=== PATIENT | female | born 1955 | race Caucasian/White ===

== ENCOUNTER 2017-09-18 11:11 | Emergency (ER) | payer BC ==
[~2017-09-18] VITALS: Ht 165.1 cm; Wt 62.7 kg
[2017-09-18] MEDS ORDERED: APIX5TAB3 PO ×2 (12:47)
[2017-09-18 13:00] VITALS: BP 138/86
== END 2017-09-18 13:03 | disposition home or self-care (01) ==
LOC: ER 11:12
DX: S80.812A Abrasion, left lower leg, initial encounter (principal); I82.812 Embolism and thrombosis of superficial veins of left lower extremity; Z79.899 Other long term (current) drug therapy; X58.XXXA Exposure to other specified factors, initial encounter; Y93.89 Activity, other specified; Y92.89 Other specified places as the place of occurrence of the external cause; Y99.8 Other external cause status
CPT/HCPCS: 93971; 99284

== ENCOUNTER 2020-08-19 16:51 | Emergency (ER) | payer BC, MEDICAID ==
[~2020-08-19] VITALS: Ht 165.1 cm; Wt 65.9 kg
[~2020-08-19 16:51] MED LIST: APIX5TAB3 PO
--- NOTE | 2020-08-19 18:30 | NUR ---
ocular care technician at bedside.
[2020-08-19] MEDS ORDERED: NAPR-56 PO (18:34)
[2020-08-19] MEDS ORDERED: APIX5TAB3 PO ×2 (18:49)
[2020-08-19] MEDS ORDERED: apixaban 5mg tablet PO STA (18:50)
[2020-08-19 19:21] VITALS: BP 137/92
== END 2020-08-19 19:18 | disposition home or self-care (01) ==
LOC: ER 16:52
DX: I82.401 Acute embolism and thrombosis of unspecified deep veins of right lower extremity (principal); Z79.01 Long term (current) use of anticoagulants
CPT/HCPCS: 93971; 99284

== ENCOUNTER 2022-01-31 16:22 | Emergency (ER) | payer MEDICARE, MEDICAID ==
[~2022-01-31] VITALS: Ht 165.1 cm; Wt 60.0 kg
[2022-01-31 17:53] LABS: ALBUMIN 3.6 G/DL (3.4-5.0); ANION GAP 5 (8-16); BLOOD UREA NITROGEN 13 MG/DL (7-18); BUN/CREATININE RATIO 15.9 (6.6-38.0); CALCIUM 9.9 MG/DL (8.5-10.1); CHLORIDE 104 MMOL/L (99-107); CREATININE 0.82 MG/DL (0.40-0.90); GLUCOSE 87 MG/DL (70-104); SODIUM 139 MMOL/L (135-145); TOTAL CARBON DIOXIDE 29.9 MMOL/L (24-32); eGFR 70 ML/MIN
[2022-01-31 18:12] LABS: BASOPHILS % (AUTO) 0.3 % (0-1); EOSINOPHILS % (AUTO) 0.5 % (0-6); HEMATOCRIT 41.5 % (35.0-45.0); HEMOGLOBIN 14.4 g/dl (12.0-16.0); LYMPHOCYTES # (AUTO) 2.3 X10'3 (1.1-4.8); LYMPHOCYTES % (AUTO) 29.2 % (21-51); MEAN CORPUSCULAR HEMOGLOBIN 34.6 PG (27.0-31.0); MEAN CORPUSCULAR HGB CONC 34.7 g/dL (33.0-36.5); MEAN CORPUSCULAR VOLUME 99.6 FL (78-98); MONOCYTES # (AUTO) 0.4 X10'3 (0-0.9); MONOCYTES % (AUTO) 5.8 % (2-12); NEUTROPHILS # (AUTO) 4.9 X10'3 (1.8-7.7); NEUTROPHILS % (AUTO) 64.2 % (42-75); PLATELET COUNT 283 X10'3 (140-440); RED BLOOD COUNT 4.16 X10'6 (4.20-5.60); RED CELL DISTRIBUTION WIDTH 13.8 % (11.5-14.5); WHITE BLOOD COUNT 7.7 X10'3 (4.5-11.0)
[2022-01-31 20:14] VITALS: BP 130/73
[2022-01-31] MEDS ORDERED: cyclobenzaprine 10mg tablet PO ONE (20:35)
[2022-01-31] MEDS ORDERED: HYDROcodone/acetaminophen 5mg/325mg tablet PO ONE (20:35)
[2022-01-31] MEDS ORDERED: HYDR-3965 PO (20:44)
[2022-01-31] MEDS ORDERED: CYCL-1 PO (20:44)
== END 2022-01-31 21:37 | disposition home or self-care (01) ==
LOC: ER 16:23
DX: S20.212A Contusion of left front wall of thorax, initial encounter (principal); M54.2 Cervicalgia; M54.50 Low back pain, unspecified; R07.81 Pleurodynia; V89.2XXA Person injured in unspecified motor-vehicle accident, traffic, initial encounter; Y93.89 Activity, other specified; Y92.89 Other specified places as the place of occurrence of the external cause; Y99.8 Other external cause status
CPT/HCPCS: 36415; 71101; 80048; 85025; 99284